=== PATIENT | male | born 1950 | race Caucasian/White ===

== ENCOUNTER 2017-09-15 07:05 | Day surgery (SDC) | payer MEDICARE, OTHER ==
[~2017-09-15 07:05] MED LIST: LIDOCAINE HCL 1% MPF SOL ONE; PROPOFOL 500 MG/50 ML EMU IV ONE
[2017-09-15 09:08] VITALS: TEMP 98.8
[2017-09-15 09:25] VITALS: RESP 20; O2SAT 97
[2017-09-15 09:29] VITALS: BP 144/81; PULSE 79
== END 2017-09-15 09:50 | disposition home or self-care (01) | DRG 951 ==
LOC: SURG 07:05
PROVIDERS: ATTEND Internal Medicine Gastroenterology
DX: Z12.11 Encounter for screening for malignant neoplasm of colon (principal); K44.9 Diaphragmatic hernia without obstruction or gangrene; R10.10 Upper abdominal pain, unspecified; K57.30 Diverticulosis of large intestine without perforation or abscess without bleeding; K64.8 Other hemorrhoids
CPT/HCPCS: 43239; G0121; J2001; J2704